=== PATIENT | female | born 1950 | race Caucasian/White ===

== ENCOUNTER 2022-02-25 09:17 | Day surgery (SDC) | payer MEDICARE, SELFPAY ==
[2022-02-25] VITALS (10 sets, daily range): BP systolic 125–141; BP diastolic 74–97; PULSE 76–88; RESP 16–20; TEMP 36.3–36.9; O2SAT 90–100; BMI 30.2
[2022-02-25] MEDS: OXYMETAZOLINE 0.05% NASAL SPRAY 2 SPRAY NOSTRIL-B (09:22)
[2022-02-25] MEDS: LACTATED RINGERS 1000 ML 1,000 ML 100 ML IV (09:30)
[2022-02-25] MEDS: SODIUM CHLORIDE 0.9 % (FLUSH) 10 ML SYRINGE IVF (10:15)
[2022-02-25] MEDS: ETHYL CHLORIDE 116 ML SPRAY 1 APPLIC TOPICAL (10:15)
[2022-02-25] MEDS: COCAINE HCL 4 % 4 ML SOLUTION NOSTRIL-B (11:45)
[2022-02-25] MEDS: BUPIVACAINE 0.5%/EPINEPHRINE 0.9 MG (30.9 ML) INJECTION (11:46)
[2022-02-25] MEDS: AYR SALINE NASAL GEL 1 APPLIC NOSTRIL-B (11:46)
--- NOTE | 2022-02-25 11:48 | SUR.OPER ---
PATIENT QUESTIONS ANSWERED SATISFACTORILY PREOPERATIVELY. ? PATIENT BROUGHT INTO OR#4 ON SDS CART.? Patient positioned supine on OR #4 bed.? Perioperative team tucked arms bilaterally at patient side in a neutral position?with drawsheet.? Final approval of positioning by surgeon.?
--- NOTE | 2022-02-25 11:52 | W.PM.ENTPROC ---
Procedure Note Date of procedure: 02/25/22 Procedure: Preoperative diagnosis nasal obstruction variable, inferior turbinate hypertrophy Postoperative diagnosis same Findings same Blood loss less than 5 mL Complications none Procedure intramural cautery inferior turbinates Under general endotracheal anesthesia patient was prepped in usual fashion. The inferior turbinates were decongested with a small amount of cocaine soaked pledgets. The anterior heads were then injected with a total of 0.5 mL of the usual injection solution. The inferior turbinates were outfractured. The Coblation Wand was used to cauterize intramurally intramural E at the anterior head and inferior 10% on both sides. Patient opted 0 thank recovery in satisfactory condition. Surgeon: Jacob Dial MD
[2022-02-25] MEDS: IBUPROFEN 200 MG TABLET PO (12:59)
[2022-02-25] MEDS: ACETAMINOPHEN 325 MG TABLET PO (13:00)
--- NOTE | 2022-02-25 14:03 | W.ANESCHARGE ---
Anesthesia Charges Start Date/Time Anesthesia Start Date: 02/25/22 Anesthesia Start Time: 11:33 Stop Date/Time Anesthesia Stop Date: 02/25/22 Anesthesia Stop Time: 12:05 Summary Emergency: No Extremes of Age: Over 69-CPT 13872
--- NOTE | 2022-02-25 14:34 | W.ANESCHARGE ---
Anesthesia Charges Start Date/Time Anesthesia Start Date: 02/25/22 Anesthesia Start Time: 11:33 Stop Date/Time Anesthesia Stop Date: 02/25/22 Anesthesia Stop Time: 12:05 Summary Emergency: No Extremes of Age: Over 69-CPT [id number]
== END 2022-02-25 13:37 | disposition home or self-care (01) ==
PROVIDERS: Visit Provider Otolaryngology
PROC: (CPT 30802; principal; 2022-02-25 10:45)
DX: J34.89 Other specified disorders of nose and nasal sinuses (principal); J34.3 Hypertrophy of nasal turbinates
CPT/HCPCS: 30802; 00160; 99100; A9270; J1100; J2250; J2405; J2704; J3010; J7120